=== PATIENT | male | born 1935 | race Caucasian/White ===

== ENCOUNTER 2017-08-30 17:11 | Inpatient (IN) | payer OTHER ==
[~2017-08-30] VITALS: Ht 165.1 cm; Wt 83.0 kg
[~2017-08-30 17:11] MED LIST: NORCO 325 MG-51 TAB PO
--- NOTE | 2017-08-30 17:52 | RADIOLOGY REPORT ---
EXAMINATION: XR CHEST CLINICAL INFORMATION: Weakening chills. COMPARISON: None TECHNIQUE: 2 views of the chest were obtained. FINDINGS: The lungs are well-expanded and clear of acute pneumonic process. There is ill-defined groundglass opacity right upper lobe right posterior fifth interspace. No additional abnormality noted. The heart size and pulmonary vascularity is normal. Moderate spondylosis dorsal spine is noted.. IMPRESSION: Small groundglass density right upper lobe. Recommend CT chest. No acute process seen otherwise.
[2017-08-30 18:20] LABS: ABSOLUTE BASOPHIL COUNT 0 /CUMM (0.0-0.2); ABSOLUTE EOSINOPHIL COUNT 0 /CUMM (0.0-0.7); ABSOLUTE GRANULOCYTE CT 2.8 /CUMM (1.4-6.5); ABSOLUTE LYMPH COUNT 0.4 /CUMM (1.2-3.4); ABSOLUTE MONOCYTE COUNT 0.3 /CUMM (0.10-0.60); BASOPHIL % 0.3 % (0.0-2.0); EOSINOPHIL % 0.5 % (0-5); GRANULOCYTE % 79.6 % (42.2-75.2); HEMATOCRIT 42.2 % (42-52); MEAN CORPUSCULAR HGB 32.1 PG (27.0-31.0); MEAN CORPUSCULAR HGB CONC 33.9 G/DL (33.0-37.0); MEAN CORPUSCULAR VOLUME 94.7 FL (80.0-94.0); MEAN PLATELET VOLUME 7.7 FL (7.4-10.4); PLATELET COUNT 178 /CUMM (130-400); RBC DISTRIBUTION WIDTH 14.6 % (11.5-14.5); RED BLOOD CELL CT 4.46 /CUMM (4.70-6.10); WHITE BLOOD CELL COUNT 3.5 /CUMM (4.8-10.8)
--- NOTE | 2017-08-30 18:38 | CT SCAN REPORT ---
CT HEAD WITHOUT CONTRAST CLINICAL INFORMATION: Weakness and headache. COMPARISON: Head CT January 06, 2010. TECHNIQUE: Contiguous axial imaging was performed from the skull base to vertex without intravenous administration of contrast. FINDINGS: Stable appearing calcification along the falx cerebri and tentorial leaflets. There is global cerebral volume loss and mild chronic microangiopathy. There is no intracranial hemorrhage, hydrocephalus, extra-axial surface collection, midline shift, or other herniation pattern. Sue to white matter differentiation is diffusely maintained without evidence of an evolved acute territorial infarct. The basilar cisterns are preserved. No significant soft tissue abnormality. No acute osseous abnormality. The paranasal sinuses and the mastoid air cells are well-aerated. IMPRESSION: No acute intracranial abnormality. There is global cerebral volume loss and mild chronic microangiopathy.
--- NOTE | 2017-08-30 19:36 | ED DYSPNEA/ASTHMA COMPLAINT ---
History of Present Illness General Chief Complaint: General Adult Stated Complaint: WEAK AND CHILLS Source: patient, family Exam Limitations: no limitations Vital Signs & Intake/Output Vital Signs & Intake/Output Vital Signs Date Time Temp Pulse Resp B/P B/P Pulse O2 O2 Flow FiO2 Mean Ox Delivery Rate 08/30 2054 99.8 99 20 139/65 94 Room Air 08/30 1940 Room Air 08/30 1717 98.2 102 18 135/88 95 Room Air Allergies Coded Allergies: NO KNOWN ALLERGIES (03/11/14) Reconcile Medications Acetaminophen/Hydrocodone Bi ([place] 325 MG-5 MG) 1 TAB TAB 1 TAB PO Q6HR PRN PAIN Allopurinol 300 MG TABLET 1 TAB PO DAILY HEADACHE (Reported) Simvastatin (Simvastatin*) 40 MG TABLET 1 TAB PO QPM HIGH CHOLESTROL ( Reported) Triage Note: PT STATES HE HAS THE CHILLS ALL LAST NIGHT INTO TODAY WITH A ALCARAZ. PT STATES HE SLEPT ALL NIGHT AND THEN AGAIN MOST OF TODAY. PT WITH RASH TO LEFT SIDE OF HIS HEAD AND STATES IT VILLAGOMEZ. Triage Nurses Notes Reviewed? yes Onset: Gradual Duration: constant Severity: severe HPI: Patient is a 82-year-old male with a past medical history of gout and hyperlipidemia who presents emergency room with concerns of a 24-hour history of profound weakness fatigue headache bodyaches chills and left-sided forehead burning rash. Denies any chest pain arm pain jaw pain nausea vomiting blurred vision facial droop extremity weakness. Patient can tolerate by mouth however had decreased by mouth intake (Marquis López) Past History Travel History Traveled to [place] past 21 day No Medical History Any Pertinent Medical History? see below for history Cardiovascular: hyperlipidemia Renal: GOUT Influenza Vaccine: 11/22/09 Surgical History Surgical History: non-contributory Psychosocial History Who do you live with Spouse Services at Home None What is your primary language Hungarian Tobacco Use: Never used ETOH Use: occasional use Illicit Drug Use: denies illicit drug use Family History Hx Contributory? No (Marquis López) Review of Systems Review of Systems Constitutional: Reports: see HPI, chills, malaise, weakness. EENTM: Reports: no symptoms. Respiratory: Reports: see HPI. Cardiovascular: Reports: no symptoms. GI: Reports: no symptoms. Genitourinary: Reports: no symptoms. Musculoskeletal: Reports: see HPI. Skin: Reports: no symptoms. Neurological/Psychological: Reports: see HPI. Hematologic/Endocrine: Reports: no symptoms. Immunologic/Allergic: Reports: no symptoms. All Other Systems: Reviewed and Negative (Marquis López) Physical Exam Physical Exam General Appearance: lethargic Head: tenderness Eyes: Bilateral: normal appearance, PERRL, EOMI. Ears, Nose, Throat: normal pharynx, normal ENT inspection, hearing grossly normal Neck: normal inspection, supple, full range of motion, no midline tenderness Respiratory: normal breath sounds, chest non-tender, no respiratory distress Cardiovascular: regular rate/rhythm Gastrointestinal: normal bowel sounds, soft, non-tender Neurologic/Psych: no motor/sensory deficits, awake, alert, oriented x 3, intervention teacher II- XII nml as tested Comments: Left forehead noted clustered vesicular erythematous rash Core Measures ACS in differential dx? Yes CVA/TIA Diagnosis No Sepsis Present: No Sepsis Focused Exam Completed? No (Marquis López) Progress Differential Diagnosis: asthma, AMI, bronchitis, costochondritis, CHF, COPD, musculoskeletal pain, pericarditis, pulmonary embolism, pneumonia, pneumothorax, rib fracture, unstable angina Plan of Care: Orders Procedure Date/time Status Heart Healthy Diet 08/31 B Active Patient Data 08/30 2112 Active BLOOD CULTURE 08/30 2054 Active ED Holding Orders 08/30 2053 Active Admit to inpatient 08/30 2053 Active Vital Signs 08/30 2053 Active Code Status 08/30 2053 Active Intake & Output 08/31 1939 Active TROPONIN LEVEL 08/30 1716 Complete LACTIC ACID 08/30 1716 Complete COMPREHENSIVE METABOLIC PANEL 08/30 1716 Complete CBC WITHOUT DIFFERENTIAL 08/30 1716 Complete EKG 08/30 1716 Active Laboratory Tests 08/30/17 2017: Lactic Acid Cancelled 08/30/17 1755: Anion Gap 13, Estimated GFR > 60, BUN/Creatinine Ratio 14.5, Glucose 126 H, Lactic Acid 1.5, Calcium 9.0, Total Bilirubin 0.6, AST 69 H, ALT 65, Alkaline Phosphatase 94, Troponin I 0.01, Total Protein 7.0, Albumin 3.9, Globulin 3.1, Albumin/Globulin Ratio 1.3, CBC w Diff NO MAN DIFF REQ, RBC 4.46 L, MCV 94.7 H , MCH 32.1 H, MCHC 33.9, RDW 14.6 H, MPV 7.7, Gran % 79.6 H, Lymphocytes % 10.7 L, Monocytes % 8.9, Eosinophils % 0.5, Basophils % 0.3, Absolute Granulocytes 2.8, Absolute Lymphocytes 0.4 L, Absolute Monocytes 0.3, Absolute Eosinophils 0, Absolute Basophils 0 Microbiology 08/30 2114 BLOOD: Blood Culture - RECD 08/31 2111 BLOOD: Blood Culture - RECD On initial presentation patient is following all commands appropriately clear lungs auscultation no apparent distress patient has suspicion of left forehead herpes zoster. No respiratory distress patient afebrile Initial chest x-ray identifies concerns of developing pneumonia CT scan of head was unremarkable no concerns of CVA. NIH stroke scale 0. Patient has nonspecific weakness complaints CT scan of chest was resulted showing concerns of bronchitis/pneumonia I also discussed the internal findings of the right renal carcinoma suspicion. Patient and family members were given copies THEY state that a few years ago they were notified BY THEIR DOCTOR of enlarged kidney however there were unknown of concerns of carcinoma prior to today Diagnostic Imaging: Viewed by Me: CT Scan. Radiology Impression: acute abnormality Initial ED EKG: normal sinus rhythm (S), SINUS RHYTHM, 98 BPM, LAD, FIRST DEGREE AV BLOCK Comments: PATIENT: ARCENIO CENTENO PRESENT AGE: 82 PATIENT ACCOUNT NO: [id number] : 33 LOCATION: [facility] ORDERING PHYSICIAN: Marquis AGUILAR SERVICE DATE: 08/30/17 EXAM TYPE: CAT - CT HEAD WO IV CONTRAST CT HEAD WITHOUT CONTRAST CLINICAL INFORMATION: Weakness and headache. COMPARISON: Head CT January 06, 2010. TECHNIQUE: Contiguous axial imaging was performed from the skull base to vertex without intravenous administration of contrast. FINDINGS: Stable appearing calcification along the falx cerebri and tentorial leaflets. There is global cerebral volume loss and mild chronic microangiopathy. There is no intracranial hemorrhage, hydrocephalus, extra-axial surface collection, midline shift, or other herniation pattern. Sue to white matter differentiation is diffusely maintained without evidence of an evolved acute territorial infarct. The basilar cisterns are preserved. No significant soft tissue abnormality. No acute osseous abnormality. The paranasal sinuses and the mastoid air cells are well-aerated. IMPRESSION: No acute intracranial abnormality. There is global cerebral volume loss and mild chronic microangiopathy. DICTATED BY: Santiago Mcdermott MD DATE/TIME DICTATED:08/30/171828 SHIRT IRONER:MALI DATE/TIME TRANSCRIBED:08/30/171828 CONFIDENTIAL, DO NOT COPY WITHOUT APPROPRIATE AUTHORIZATION. <Electronically signed in Other Vendor System> SIGNED BY: Santiago Mcdermott MD 08/30/171837 PATIENT: ARCENIO CENTENO PRESENT AGE: 82 PATIENT ACCOUNT NO: [id number] : 33 LOCATION: [facility] ORDERING PHYSICIAN: Marquis AGUILAR SERVICE DATE: 08/30/17 EXAM TYPE: CAT - CT CHEST W IV CONTRAST EXAMINATION: CT CHEST WITH CONTRAST CLINICAL INFORMATION: Weakness. Chest x-ray shows suspecting pneumonia. COMPARISON: CT chest 03/11/2014 TECHNIQUE: Multidetector volumetric CT imaging of the chest was obtained after the administration of 50 mL of Optiray 320 intravenous contrast without immediate adverse reactions. Axial MIP volume rendering provided. Sagittal and coronal reformatted images were obtained. DLP: 267 mGy-cm FINDINGS: CHANNELER INSOLE: Unremarkable. LUNGS: The lungs are well expanded and clear of acute pneumonic process. There is no groundglass attenuation, nodule or mass seen in the right upper lobe to correspond to chest x-ray abnormality. However there is bilateral lower lobe platelike and bandlike atelectasis. There is focal traction bronchiectasis right lower lobe with mild loss of right lower lobe volume. Mild bronchiectasis seen in the left lower lobe and right middle lobe. MEDIASTINUM: The thyroid lobes are symmetrical and normal. The central trachea and the bronchi widely patent. Heart size and the great vessels are normal caliber. No abnormal size lymph nodes or mass seen. No pericardial effusion. PLEURA: Is minimal bilateral posterior pleural thickening but no effusion or calcified pleural plaque seen. AXILLA: Small shotty lymph nodes are seen in the axilla. The chest wall appears unremarkable. UPPER ABDOMEN: Visualized liver, spleen, pancreas and bilateral adrenal glands are unremarkable. There is a solid isodense mass in the right kidney measuring 3.2 x 4.8 cm and approximately 80 Hounsfield units suggestive of right renal cancer unless proven otherwise. It measured 3.0 x 3.7 x 3.0 cm on the previous CT chest exam 03/11/2014. There is cortical thinning upper pole left kidney. A 7 mm hypodensity or fullness seen in the right adrenal gland. OSSEOUS STRUCTURES: There is moderate spondylosis mid and lower dorsal spine. No lytic or sclerotic process seen. IMPRESSION: Bilateral lower lobe platelike and bandlike atelectasis with focal traction bronchiectasis it involves both lower lobes and right middle lobe. These findings are most suggestive of terminal bronchiolar disease and/or resolving infiltrate. There is no right upper lobe nodule or mass seen to correspond with chest x-ray abnormality There is a right upper lobe solid mass suggestive of renal carcinoma unless proven otherwise. It it has slightly increased in size since 2015. 7 mm hypodensity or fullness in the right adrenal gland appears stable DICTATED BY: Alexander Hogan MD DATE/TIME DICTATED:08/30/172025 SHIRT IRONER:MALI DATE/TIME TRANSCRIBED:08/30/172025 CONFIDENTIAL, DO NOT COPY WITHOUT APPROPRIATE AUTHORIZATION. <Electronically signed PATIENT: ARCENIO CENTENO PRESENT AGE: 82 PATIENT ACCOUNT NO: [id number] : 33 LOCATION: [facility] ORDERING PHYSICIAN: Marquis AGUILAR SERVICE DATE: 08/30/17 EXAM TYPE: RAD - XRY-CHEST XRAY, TWO VIEWS EXAMINATION: XR CHEST CLINICAL INFORMATION: Weakening chills. COMPARISON: None TECHNIQUE: 2 views of the chest were obtained. FINDINGS: The lungs are well-expanded and clear of acute pneumonic process. There is ill-defined groundglass opacity right upper lobe right posterior fifth interspace. No additional abnormality noted. The heart size and pulmonary vascularity is normal. Moderate spondylosis dorsal spine is noted.. IMPRESSION: Small groundglass density right upper lobe. Recommend CT chest. No acute process seen otherwise. DICTATED BY: Alexander Hogan MD DATE/TIME DICTATED:08/30/171744 SHIRT IRONER:MALI DATE/TIME TRANSCRIBED:08/30/171744 CONFIDENTIAL, DO NOT COPY WITHOUT APPROPRIATE AUTHORIZATION. <Electronically signed in Other Vendor System> SIGNED BY: Alexander Hogan MD 08/30/171751 (Akin AGUILAR,Marquis) Departure Departure Disposition: STILL A PATIENT Condition: Stable Clinical Impression Primary Impression: Pneumonia Secondary Impressions: Renal carcinoma, Zoster Referrals: Woodrow CORRALES,Gael Pollard (PCP/Family) Departure Forms: Customer Survey General Discharge Information Admission Note Spoke With: Sintia Anderson MD Documentation of Exam: Documentation of any treatments & extenuating circumstances including Concerns Regarding Discharge (functional status, medication knowledge or non-compliance, living conditions, etc.) that warrant an admission rather than observation: [ Patient requires IV antibiotics and antiviral medication, IV fluids, oncology consultation, nephrology consultation blood cultures currently pending] (Marquis López) PA/SALVAGE CLERK Co-Sign Statement Statement: ED Attending supervision documentation- [X] I saw and evaluated the patient. I have also reviewed all the pertinent lab results and diagnostic results. I agree with the findings and the plan of care as documented in the PA's/SALVAGE CLERK's documentation. [X] I have reviewed the ED Record and agree with the PA's/SALVAGE CLERK's documentation. [] Additions or exceptions (if any) to the PAs/SALVAGE CLERK's note and plan are summarized below: [Patient. Admitted for pneumonia, he will need a urology consult given the renal mass. IV antibiotics, pulmonary consult.] (Seema CORRALES,Melvin Senior) Critical Care Note Critical Care Note Critical Care Time: non-applicable (Marquis López) Critical Care Time: non-applicable (Marquis López)
[2017-08-30] MEDS ORDERED: ALLOPURINOL300 M1 PO (19:40)
[2017-08-30] MEDS ORDERED: SIMVASTATIN40 M1 PO (19:41)
--- NOTE | 2017-08-30 20:46 | CT SCAN REPORT ---
EXAMINATION: CT CHEST WITH CONTRAST CLINICAL INFORMATION: Weakness. Chest x-ray shows suspecting pneumonia. COMPARISON: CT chest 03/11/2014 TECHNIQUE: Multidetector volumetric CT imaging of the chest was obtained after the administration of 50 mL of Optiray 320 intravenous contrast without immediate adverse reactions. Axial MIP volume rendering provided. Sagittal and coronal reformatted images were obtained. DLP: 267 mGy-cm FINDINGS: PICKLER HELPER: Unremarkable. LUNGS: The lungs are well expanded and clear of acute pneumonic process. There is no groundglass attenuation, nodule or mass seen in the right upper lobe to correspond to chest x-ray abnormality. However there is bilateral lower lobe platelike and bandlike atelectasis. There is focal traction bronchiectasis right lower lobe with mild loss of right lower lobe volume. Mild bronchiectasis seen in the left lower lobe and right middle lobe. MEDIASTINUM: The thyroid lobes are symmetrical and normal. The central trachea and the bronchi widely patent. Heart size and the great vessels are normal caliber. No abnormal size lymph nodes or mass seen. No pericardial effusion. PLEURA: Is minimal bilateral posterior pleural thickening but no effusion or calcified pleural plaque seen. AXILLA: Small shotty lymph nodes are seen in the axilla. The chest wall appears unremarkable. UPPER ABDOMEN: Visualized liver, spleen, pancreas and bilateral adrenal glands are unremarkable. There is a solid isodense mass in the right kidney measuring 3.2 x 4.8 cm and approximately 80 Hounsfield units suggestive of right renal cancer unless proven otherwise. It measured 3.0 x 3.7 x 3.0 cm on the previous CT chest exam 03/11/2014. There is cortical thinning upper pole left kidney. A 7 mm hypodensity or fullness seen in the right adrenal gland. OSSEOUS STRUCTURES: There is moderate spondylosis mid and lower dorsal spine. No lytic or sclerotic process seen. IMPRESSION: Bilateral lower lobe platelike and bandlike atelectasis with focal traction bronchiectasis it involves both lower lobes and right middle lobe. These findings are most suggestive of terminal bronchiolar disease and/or resolving infiltrate. There is no right upper lobe nodule or mass seen to correspond with chest x-ray abnormality There is a right upper lobe solid mass suggestive of renal carcinoma unless proven otherwise. It it has slightly increased in size since 2014. 7 mm hypodensity or fullness in the right adrenal gland appears stable
--- NOTE | 2017-08-30 22:18 | History & Physical ---
Alex Chamberlain 08/30/17 2218: General Information and HPI MD Statement: I have seen and personally examined ARCENIO CENTENO and documented this H&P. The patient is a 82 year old M who presented with a patient stated chief complaint of [fever chills and weakness]. Source of Information: patient Exam Limitations: no limitations History of Present Illness: Mr. Centeno is a pleasant 82-year-old male with a PMH of Hypertension, hyperlipidemia, benign prostatic hyperplasia, hx of one TIA presents to the ED with significant weakness, fatigue, chills, and painful forehead rash. Patient noticed a rash on his forehead 2 days ago that was extremely painful. He describes it as burning. He also began feeling extremely fatigued, slightly short of breath, and weak and could not get out of bed despite being very active and independent. This worried him because it was very different from his baseline. He was feeling so weak that he did not even take his regular meals or take his medications. He spent almost the entire weekend in bed. He denies fever, nausea, vomiting, cough, chest pain, palpitations, lightheadedness, any recent travel, sick contacts. Allergies/Medications Allergies: Coded Allergies: NO KNOWN ALLERGIES (03/11/14) Past History Travel History Traveled to [place] past 21 day No Medical History Cardiovascular: hyperlipidemia Renal: GOUT Influenza Vaccine: 11/22/09 Surgical History Surgical History: non-contributory Past Family/Social History Psychosocial History Services at Home: None ETOH Use: occasional use Illicit Drug Use: denies illicit drug use Review of Systems Review of Systems Constitutional: Reports: diaphoresis, weakness. Denies: chills, fever. EENTM: Denies: blurred vision, throat pain. Cardiovascular: Denies: chest pain, palpitations. Respiratory: Denies: short of breath. GI: Denies: abdominal pain, bloating, diarrhea, distention, nausea, changes in stool , vomiting. Genitourinary: Denies: dysuria, frequency. Musculoskeletal: Denies: joint pain. Skin: Reports: rash. Neurological/Psychological: Reports: no symptoms. Hematologic/Endocrine: Reports: no symptoms. Immunologic/Allergic: Reports: no symptoms. All Other Systems: Reviewed and Negative Exam & Diagnostic Data Last 24 Hrs of Vital Signs/I&O Vital Signs Date Time Temp Pulse Resp B/P B/P Pulse O2 O2 Flow FiO2 Mean Ox Delivery Rate 08/31 0823 74 148/78 08/31 0823 74 148/78 08/31 0624 100.9 08/31 0601 101.4 08/31 0557 101.4 78 18 151/82 96 Room Air 08/31 0048 98.9 89 20 142/72 95 Room Air 08/30 2055 99.8 99 20 139/65 94 Room Air 08/30 1941 Room Air 08/30 1717 98.2 102 18 135/88 95 Room Air Intake & Output 08/31 1600 08/31 0800 07 0000 Intake Total 1000 Output Total Balance 1000 Intake, IV 1000 Patient 165 lb 165 lb Weight Weight Reported by Patient Measurement Method Physical Exam General Appearance Alert, Oriented X3, Cooperative, No Acute Distress Skin Temp/Moisture Exam: Warm/Dry HEENT Atraumatic, PERRLA, EOMI Neck Supple Cardiovascular Regular Rate (Tachy), Normal S1, Normal S2 Lungs Clear to Auscultation Abdomen Normal Bowel Sounds, Soft Extremities Normal Pulses Assessment/Plan Assessment: 1. Bilateral lower lobe acute exacerbation of bronchiectasis - IV Ceftrixone + Azithromycin - Icentive Spiroemtry - Blood and Sputum Cx - Pulm Consult 2. New right renal cell carcinoma - Urology Consult 3. Herpes Zoster Rash - Valtrex for shingles 4. House Chores - DVT PPX - Full Code As Ranked By This Provider Problem List: 1. Fall 2. Zoster 3. Pneumonia 4. Kidney mass Core Measures/Misc (11/08) Acute Coronary Syndrome ACS Diagnosis: No Congestive Heart Failure Congestive Heart Failure Diagnosis No Cerebrovascular Accident CVA/TIA Diagnosis: No VTE (View Protocol) VTE Risk Factors Age>40 No Mechanical VTE Prophylaxis d/t N/A MechProphylax Ordered No VTE Pharm Prophylaxis d/t NA PharmProphylax ordered Sepsis (View protocol) Sepsis Present: Yes If YES complete Sepsis Event Note If YES complete Sepsis Event Note Inpatient Sepsis Exam Sepsis Cardiac Exam: Tachycardia Sepsis Resp Exam: Ronchi Sepsis Cap Refill Exam: >2 sec Sepsis Peripheral Pulse Exam: Normal Sepsis Peripheral Pulse Location: Dorsalis Pedis Sepsis Skin Color Exam: Normal for Ethnicity Skin Temp/Moisture Exam: Warm/Dry Brittnee CORRALES,Amanda 08/30/17 1242: General Information and HPI Allergies/Medications Home Med list Acetaminophen/Hydrocodone Bi (C[place] 325 MG-5 MG) 1 TAB TAB 1 TAB PO Q6HR PRN PAIN Allopurinol 300 MG TABLET 1 TAB PO DAILY HEADACHE (Reported) Aspirin (Ecotrin*) 81 MG TABLET.DR 1 TAB PO DAILY TIA (Reported) Losartan Potassium 50 MG TABLET 1 TAB PO DAILY HTN (Reported) Propranolol HCl 40 MG TABLET 1 TAB PO DAILY HTN (Reported) Simvastatin (Simvastatin*) 40 MG TABLET 1 TAB PO QPM HIGH CHOLESTROL ( Reported) Core Measures/Misc (11/08) Sepsis (View protocol) If YES complete Sepsis Event Note If YES complete Sepsis Event Note Resident Review Statement Resident Statement: examined this patient, discussed with hr intern, agreed with hr intern, reviewed EMR data (avail), discussed with nursing, reviewed images Other Findings: Mr. Centeno is an 82 y/o gentleman with PMH of HTN, [place](1973), HLD, Gout, BPH and Stroke presents with profound weakness, chills and left-sided forehead burning rash. According to the patient he was in his usual state of health until Wednesday when he noticed a rash on his forehead(left side) and was burning. He also reports feeling extremely cold, states she couldn't get warm and had chills. Since Wednesday also feels very tired, he slept all day on Wednesday and Wednesday and also did not take his medications. He is pretty active at baseline and this was very unusual for him. Denies any fever, cough, shortness of breath, chest pain, lightheadedness/dizziness, recent travel or sick contacts, abdominal pain, nausea/vomiting or diarrhea/constipation. He does endorse decreased appetite and is not eating well for the past 2 days. Vitals on admission were Temp 98.2, HR102 , RR 18, BP 135/18, 95% on room air Physical He had a WBC 3.5, H&H 14.3/42.2, plt count 178, BUN/Creatinine Ratio 14.5, Glucose 126 H, Lactic Acid 1.5,normal LFTs, Troponin 0.01, Blood Cx pending. CT HEAD WO IV CONTRAST; No acute intracranial abnormality. CT CHEST W IV CONTRAST; Bilateral lower lobe platelike and bandlike atelectasis with focal traction bronchiectasis it involves both lower lobes and right middle lobe. These findings are most suggestive of terminal bronchiolar disease and/or resolving infiltrate. There is a right upper lobe solid mass suggestive of renal carcinoma unless proven otherwise. It it has slightly increased in size since 2015. Problem List 1. Acute Exacerbation of Bronchiectasis; ?? Sepsis Patient meets sepsis criteria (WBC count < 4 and HR > 90 with source of infecrtion) but clinically does not look septic and hemodynamically stable. 2. Herpes Zoster 3. Renal Mass on CT 4. Hx of HTN, HLD, Gout - Admit the patient to general medicine floor - Start the patient on IV ceftriaxone and azithromycin - Intensive spirometry - Pulm Consult - F/u Blood and sputum Cx - Valtrex for shingles - Urology Consult for renal Mass - Continue Home medications. DVT prophylaxis; Alps and subcutaneous Lovenox Patient is full code Sintia Anderson MD 08/30/17 2241: Core Measures/Misc (11/08) Sepsis (View protocol) If YES complete Sepsis Event Note If YES complete Sepsis Event Note Attending MD Review Statement Attending Statement Attending MD Statement: examined this patient, discuss w/resident/PA/RN CORRECTIONS, agreed w/resident/PA/RN CORRECTIONS, reviewed EMR data (avail) Attending Assessment/Plan: 82M PMH gout, HLD presenting with 1 day of fever, chills, and weakness. Has been sleeping >12 hours per day the past few days and has felt ill and fatigued. Denies cough, has some mild SOB. Denies sore throat, chest pain, palpitations, abdominal pain, diarrhea, dysuria. Temp 99.8 in the ED, normal BP, WBC 3.5. CT shows bilateral lower lobe traction bronchiectasis without pneumonia, and right sided renal cell carcinoma [id number]. Had known mass on kidney, but has increased in size since prior CT. 1. Bilateral lower lobe acute exacerbation of bronchiectasis 2. New right renal cell carcinoma Plan - Admit to general medicine - Ceftriaxone and Azithro - Sputum culture - Pulmonary and urology consults - Incentive spirometry - Continue home meds - DVT PPx
--- NOTE | 2017-08-30 22:43 | Admission Certification ---
Admission Certification Certification Statement - As attending physician, I certify that at the time of - admission, based on clinical presentation, severity of - symptoms, need for further diagnostic testing and - therapeutic interventions, and risk of adverse outcomes - without in-hospital treatment, in my clinical assessment, - this patient requires an acute hospital stay for a minimum - of two nights or longer. I have also considered psychsocial - factors such as support system, advanced age, financial - issues, cognitive issues, and failed out-patient treatments, - past re-admission history, safety of patient, and lack of - compliance as applicable. Specific rationale supporting this admission is: Profound fatigue with exacerbation of bronchiectasis
[2017-08-31] MEDS ORDERED: PROPRANOLOL HCL40 M1 PO (01:16)
[2017-08-31] MEDS ORDERED: LOSARTAN POTASS50 M1 PO (01:17)
[2017-08-31] MEDS ORDERED: ASPIRIN EC81 M1 PO (01:17)
[2017-08-31 05:53] LABS: ABSOLUTE BASOPHIL COUNT 0 /CUMM (0.0-0.2); ABSOLUTE EOSINOPHIL COUNT 0 /CUMM (0.0-0.7); ABSOLUTE GRANULOCYTE CT 2.3 /CUMM (1.4-6.5); ABSOLUTE LYMPH COUNT 0.3 /CUMM (1.2-3.4); ABSOLUTE MONOCYTE COUNT 0.3 /CUMM (0.10-0.60); BASOPHIL % 0 % (0.0-2.0); EOSINOPHIL % 1.1 % (0-5); GRANULOCYTE % 79.8 % (42.2-75.2); HEMATOCRIT 38.4 % (42-52); MEAN CORPUSCULAR HGB 32.1 PG (27.0-31.0); MEAN CORPUSCULAR HGB CONC 33.8 G/DL (33.0-37.0); MEAN CORPUSCULAR VOLUME 94.8 FL (80.0-94.0); MEAN PLATELET VOLUME 7.7 FL (7.4-10.4); PLATELET COUNT 137 /CUMM (130-400); RBC DISTRIBUTION WIDTH 15.2 % (11.5-14.5); RED BLOOD CELL CT 4.05 /CUMM (4.70-6.10); WHITE BLOOD CELL COUNT 2.9 /CUMM (4.8-10.8)
--- NOTE | 2017-08-31 09:09 | PN- Housestaff ---
See Addendum Subjective Follow-up For: severe fatigue and weakness Complaints: no complaints Subjective: Patient states he continues to experience severe fatigue and weakness. He states he got up to use the bathroom in the hospital room and tried to fix his blankets when he came back. This completely exhausted him. He states this is so abnormal for him because he golfs four days a week and walks at least 4 holes. He has not noticed any tick bites while being outside. He states the rash on his left forehead has a burning sensation intermittently. He states he has a h/o constipation and has BM q 3-4days and takes dulcolax daily. Denies fever, chills, n/v/d, chest pain, SOB, abdominal pain. Review of Systems Constitutional: Reports: see HPI. Objective Last 24 Hrs of Vital Signs/I&O Vital Signs Date Time Temp Pulse Resp B/P B/P Pulse O2 O2 Flow FiO2 Mean Ox Delivery Rate 08/31 1332 97.8 08/31 0823 74 148/78 08/31 0823 74 148/78 08/31 0800 Room Air 08/31 0624 100.9 08/31 0601 101.4 08/31 0557 101.4 78 18 151/82 96 Room Air / 0048 98.9 89 20 142/72 95 Room Air 08/30 2055 99.8 99 20 139/65 94 Room Air 08/30 1941 Room Air 08/30 1717 98.2 102 18 135/88 95 Room Air Intake & Output 08/31 1600 /10 0800 08/31 0000 Intake Total 1000 Output Total Balance 1000 Intake, IV 1000 Patient 165 lb 165 lb Weight Weight Reported by Patient Measurement Method Physical Exam General Appearance: Alert, Oriented X3, Cooperative, No Acute Distress Skin: 3-4 crusted lesions with surrounding erythema Skin Temp/Moisture Exam: Warm/Dry HEENT: Atraumatic, PERRLA Neck: Supple Cardiovascular: Regular Rate, Normal S1, Normal S2, No Murmurs Lungs: Clear to Auscultation Abdomen: Normal Bowel Sounds, Soft, No Tenderness Neurological: Normal Tone, Sensation Intact Extremities: No Edema, Normal Pulses Assessment/Plan Assessment: Mr. Anne is a pleasant 82-year-old male with a PMH of Hypertension, hyperlipidemia, benign prostatic hyperplasia, hx of one TIA presents to the ED with significant weakness, fatigue, chills, and painful forehead rash for 3-4 days. He was admitted to the general medicine service for the following problems: Problem List: 1. Herpes Zoster left forehead 2. Bronchiectasis 3. Severe Fatigue 4. Right renal mass-increased in size compared to imaging from 2014 #Herpes Zoster left forehead -Valacyclovir 1,000mg PO tid-7-10 day course to prevent post herpetic neuralgia #Bronchiectasis -Ceftriaxone/Azithromycin -Pulmonology consult: awaiting recs -follow up sputum cultures #Right renal cell mass (increased since 2014) -Urology consult: awaiting recs #Severe fatigue -Blood cultures pending #chronic medical problems -continue home medication doses DVT prophylaxis: ALPS/lovenox/ambulation Problem List: 1. Kidney mass 2. Zoster 3. Bronchiectasis Pain Ratin Pain Location: none Pain Goal: Remain pain free Pain Plan: see a/p Tomorrow's Labs & Rationales: none
[2017-08-31 16:00] VITALS: BP 138/72
[2017-08-31 22:46] VITALS: BP 112/60
[2017-09-01 07:15] VITALS: BP 124/62
--- NOTE | 2017-09-01 07:39 | PN- Housestaff ---
See Addendum Subjective Follow-up For: bronchiectasis herpes zoster-left forehead Complaints: no complaints Subjective: Patient states he didn't rest very well last night because it's not his own bed. He reports feeling better as he is able to take a deep breath without coughing. He is also improving with his fatigue and was able to go to the bathroom without severe fatigue. We spoke again about the CT findings regarding the renal mass. He feels he will not pursue diagnostics and states he is '82 years old and has had a good life'. He denies any n/v/d, chest pain, SOB, abdominal pain, back pain, fever, chills. Of Note: When rounding this morning the patient states he just finished showering and did experience extreme fatigue when walking back to his bed and could only go a few feet before having to rest in a chair. He also reports associated cough with a deep breath. Review of Systems Constitutional: Reports: see HPI. Objective Last 24 Hrs of Vital Signs/I&O Vital Signs Date Time Temp Pulse Resp B/P B/P Pulse O2 O2 Flow FiO2 Mean Ox Delivery Rate 09/01 0816 73 120/76 09/01 0816 73 120/76 09/01 0715 98.1 64 16 124/62 93 09/01 0000 Room Air 08/31 2246 97.9 77 16 112/60 92 08/31 1610 95 Room Air 08/31 1600 98.1 73 18 138/72 95 Room Air 08/31 1513 98.5 72 18 115/62 94 Room Air 08/31 1332 97.8 Intake & Output 09/01 1600 09/01 0800 09/01 0000 Intake Total Output Total Balance Patient 183 lb 164 lb Weight Weight Standing Scale Measurement Method Physical Exam General Appearance: Alert, Oriented X3, Cooperative, No Acute Distress Skin: lesions on left forehead less erythematous today Skin Temp/Moisture Exam: Warm/Dry HEENT: Atraumatic, PERRLA Neck: Supple Cardiovascular: Regular Rate, Normal S1, Normal S2 Lungs: Clear to Auscultation Abdomen: Normal Bowel Sounds, Soft, No Tenderness Neurological: Normal Tone, Sensation Intact Extremities: No Edema, Normal Pulses Assessment/Plan Assessment: Mr. Anne is a pleasant 82-year-old male with a PMH of Hypertension, hyperlipidemia, benign prostatic hyperplasia, hx of one TIA presents to the ED with significant weakness, fatigue, chills, and painful forehead rash for 3-4 days. He was admitted to the general medicine service for the following problems: Problem List: 1. Herpes Zoster left forehead 2. Bronchiectasis 3. Severe Fatigue 4. Right renal mass-increased in size compared to imaging from 2015 #Herpes Zoster left forehead -Valacyclovir 1,000mg PO tid-7-10 day course to prevent post herpetic neuralgia #Bronchiectasis -Ceftriaxone/Azithromycin -sputum cultures: pending #Leukopenia-could be associated with bronchiectasis -WBC 2.9 (awaiting labs today) -will continue to monitor #Right renal cell mass (increased since 2014) -Urology consult: awaiting recs. Can possibly be done outpatient if urology unable to see inpatient as this finding is unrelated to current hospitalization #Severe fatigue -Blood cultures: pending #chronic medical problems -continue home medication doses DVT prophylaxis: ALPS/lovenox/ambulation Problem List: 1. Kidney mass 2. Bronchiectasis 3. Fatigue Pain Ratin Pain Location: none Pain Goal: Remain pain free Pain Plan: see a/p Tomorrow's Labs & Rationales: none
[2017-09-01 08:29] LABS: ABSOLUTE BASOPHIL COUNT 0 /CUMM (0.0-0.2); ABSOLUTE EOSINOPHIL COUNT 0.1 /CUMM (0.0-0.7); ABSOLUTE GRANULOCYTE CT 1.5 /CUMM (1.4-6.5); ABSOLUTE LYMPH COUNT 0.7 /CUMM (1.2-3.4); ABSOLUTE MONOCYTE COUNT 0.2 /CUMM (0.10-0.60); BASOPHIL % 0.5 % (0.0-2.0); EOSINOPHIL % 3.5 % (0-5); GRANULOCYTE % 60.7 % (42.2-75.2); HEMATOCRIT 36.3 % (42-52); MEAN CORPUSCULAR HGB 32.4 PG (27.0-31.0); MEAN CORPUSCULAR HGB CONC 34.3 G/DL (33.0-37.0); MEAN CORPUSCULAR VOLUME 94.3 FL (80.0-94.0); MEAN PLATELET VOLUME 8.8 FL (7.4-10.4); RED BLOOD CELL CT 3.86 /CUMM (4.70-6.10); WHITE BLOOD CELL COUNT 2.5 /CUMM (4.8-10.8)
[2017-09-01 09:54] LABS: PLATELET COUNT 117 /CUMM (130-400)
--- NOTE | 2017-09-01 13:44 | Discharge Summary ---
Visit Information Visit Dates Admission Date: 08/30/17 Discharge Date: 09/02/17 Hospital Course Course Attending Physician: Scott Beal MD Primary Care Physician: Gael Troy MD Hospital Course: Mr. Anne is a pleasant 82-year-old male with a PMH of Hypertension, hyperlipidemia, benign prostatic hyperplasia, hx of one TIA presents to the ED with significant weakness, fatigue, chills, and painful forehead rash for 3-4 days. He was admitted to the general medicine service for the following problems: Problem List: 1. Herpes Zoster left forehead 2. Bronchiectasis 3. Severe Fatigue 4. Right renal mass-increased in size compared to imaging from 2015 Admission Data:T98.2 P102 RR18 BP135/88 Sat 95%RA CT head: No acute intracranial abnormality. There is global cerebral volume loss and mild chronic microangiopathy CXR: Small groundglass density right upper lobe. Recommend CT chest. No acute process seen otherwise. CT chest: Bilateral lower lobe platelike and bandlike atelectasis with focal traction bronchiectasis it involves both lower lobes and right middle lobe. These findings are most suggestive of terminal bronchiolar disease and/or resolving infiltrate. There is no right upper lobe nodule or mass seen to correspond with chest x-ray abnormality. There is a right upper lobe solid mass suggestive of renal carcinoma unless proven otherwise. It it has slightly increased in size since 2015. 7 mm hypodensity or fullness in the right adrenal gland appears stable #Herpes Zoster left forehead was treated with Valacyclovir 1,000mg PO tid. Was given a Rx for continued treatment to total a 10 day treament course. #Bronchiectasis was treated with Ceftriaxone/Azithromycin. Given 2 more day Rx ( Cefdinir and Azithromycin) to complete a 5 day treatment course. #Leukopenia-could be associated with bronchiectasis or malignancy. WBC 2.9 #Right renal cell mass (increased since 2015). Urology consulted. Will need to follow up outpatient to discuss interventions. Urology is recommending patient goes to [place] for robotic surgery given age. CT abd/pelv 09/01/[address] Benson: Redemonstration of the exophytic right upper pole renal mass. This demonstrates postcontrast enhancement, measuring 3.4 x 3 x 3.4 cm. This compares to 3.2 x 2.6 x 2.9 cm on the prior. In addition, there is an exophytic anterior left lower pole lesion measuring 0.8 cm. This likely represents a cyst. Solid right renal mass which is likely senior human resources representative of a renal cell carcinoma. This demonstrates slight interval growth when compared to the previous CT performed 03/11/2014. #Severe fatigue- evaluated with blood cultures to rule out bacteremia. This could be from underlying malignancy. Blood cultures were negative. Patient was deemed stable to discharge home self care on 09/02/17 with continue antibiotics and antivirals. He will follow up as an outpatient with his PCP and [facility] for further discussion of interventions for right renal mass. He was tolerating a diet well and vital signs were stable; afebrile. Allergies: Coded Allergies: NO KNOWN ALLERGIES (03/11/14) Disposition Summary Disposition Principal Diagnosis: bronchiectasis Additional Diagnosis: shingles (herpes zoster) right renal mass-present since [address] imaging Discharge Disposition: home or self care Discharge Instructions General Discharge Information Code Status: Full Code Patient's Diet: regular Patient's Activity: as tolerated Follow-Up Instructions/Appts: Follow up with your PCP Please consider going for consultation with Surgery at [facility] to discuss treatment for right renal mass Continue and complete all prescriptions as directed Medications at Discharge Discharge Medications: Continue taking these medications: Acetaminophen/Hydrocodone Bi (Ralph 325 MG-5 MG) 1 TAB TAB 1 Tablet ORAL Q6HR as needed for PAIN Qty = 15 Allopurinol (Allopurinol) 300 MG TABLET 1 Tablet ORAL DAILY Qty = 90 Comments: Last Taken:09/02/17 Time:0848 AM Simvastatin (Simvastatin*) 40 MG TABLET 1 Tablet ORAL Every night Qty = 90 Comments: ATORVASTATIN GIVEN IN HOSPITAL Last Taken:09/01/17 Time:05:36PM Propranolol HCl (Propranolol HCl) 40 MG TABLET 1 Tablet ORAL DAILY Qty = 90 Comments: Last Taken:09/02/17 Time:0844AM Losartan Potassium (Losartan Potassium) 50 MG TABLET 1 Tablet ORAL DAILY Qty = 90 Comments: Last Taken:09/02/17 Time:0840AM Aspirin (Ecotrin*) 81 MG TABLET.DR 1 Tablet ORAL DAILY Comments: Last Taken:09/02/17 Time:0847AM Start taking the following new medications: Cefdinir (Cefdinir) 300 MG CAPSULE 1 Capsule ORAL TWICE DAILY Qty = 4 No Refills Instructions: . Azithromycin (Azithromycin) 250 MG TABLET 250 Milligram ORAL AT BEDTIME Qty = 2 No Refills Instructions: . Comments: Last Taken:09/01/17 Time:08:31PM Valacyclovir Hydrochloride (Valtrex) 500 MG TABLET 1,000 Milligram ORAL THREE TIMES DAILY Qty = 42 No Refills Instructions: . Comments: Last Taken:09/02/17 Time:08:48AM DOSE 7 OF 20 Copies To: Marcelino CORRALES,Melina; Woodrow CORRALES,Gael Pollard Attending MD Review Statement Documenting Attending: Scott Beal MD Other Findings: The patient was seen and agree with summary of care and plan of care upon discharge. Will follow-up with PCP for pneumonia and also suggested he go to [place] for evaluation for renal mass and possible robotic surgery. He was given a disk with copies of his CT images.
[2017-09-01 14:14] VITALS: BP 120/62
--- NOTE | 2017-09-01 17:19 | Cons- Urology ---
General Information and HPI Consulting Request Date of Consult: 09/01/17 Requested By: Scott Beal MD Reason for Consult: right renal mass Source of Information: patient Exam Limitations: no limitations History of Present Illness: An 82-year-old male with a PMH of Hypertension, hyperlipidemia, benign prostatic hyperplasia, hx of one TIA presents to the ED with significant weakness, fatigue , chills, and painful forehead rash. He also began feeling extremely fatigued, slightly short of breath, and weak and could not get out of bed despite being very active and independent. He denied any fever, nausea, vomiting, cough, chest pain, palpitations, lightheadedness, any recent travel, sick contacts. He was found to have a pneumonia. Urology was consulted for a right renal mass seen on CT scan of the chest. He stated that he knew about the kidney mass three years ago but did not have it addressed bc he thought it meant he would need to have a catheter placed. He denies any weight loss or right flank pain or gross hematuria. He has no smoking hx or renal cancer hx in his family. Allergies/Medications Allergies: Coded Allergies: NO KNOWN ALLERGIES (03/11/14) Home Med List: Acetaminophen/Hydrocodone Bi (Capron 325 MG-5 MG) 1 TAB TAB 1 TAB PO Q6HR PRN PAIN Allopurinol 300 MG TABLET 1 TAB PO DAILY HEADACHE (Reported) Aspirin (Ecotrin*) 81 MG TABLET.DR 1 TAB PO DAILY TIA (Reported) Losartan Potassium 50 MG TABLET 1 TAB PO DAILY HTN (Reported) Propranolol HCl 40 MG TABLET 1 TAB PO DAILY HTN (Reported) Simvastatin (Simvastatin*) 40 MG TABLET 1 TAB PO QPM HIGH CHOLESTROL ( Reported) Current Medications: Current Medications Sig/Damien Start time Last Medication Dose Route Stop Time Status Admin Acetaminophen 650 MG Q6P PRN 08/31 0115 AC 08/31 PO 0601 Albuterol Sulfate 3 ML BID 09/01 1116 AC 09/01 INH 1117 Allopurinol 300 MG DAILY 08/31 013 AC 09/01 PO 0817 Aspirin Buffered 81 MG DAILY 08/31 0130 AC 09/01 PO 0817 Atorvastatin Calcium 20 MG 1700 08/31 0130 AC 08/31 PO 1657 Azithromycin 250 MG AT BEDTIME 08/31 2100 AC 08/31 PO 220 Ceftriaxone Sodium 1,000 MG Q24H 08/31 2199 AC 07/10 IV 2208 Docusate Sodium 100 MG DAILY NEEDED PRN 08/31 1800 AC 09/01 PO 0817 Enoxaparin Sodium 40 MG DAILY 08/31 0900 AC 09/01 SC 0816 Guaifenesin 600 MG Q12 09/01 1111 AC 09/01 PO 1134 Losartan Potassium 50 MG DAILY 08/31 0130 AC 09/01 PO 0816 Omeprazole 40 MG DAILY AC 08/31 0730 AC 09/01 PO 0601 Patient Medication 1 ED ONE ONE 09/01 1230 DC 09/01 Teaching ED 09/01 1231 1225 Polyethylene Glycol 17 GM DAILY 08/31 1751 AC 09/01 PO 0816 Propranolol HCl 40 MG DAILY 08/31 0130 AC 09/01 PO 0816 Senna 187 MG AT BEDTIME 08/31 2100 AC 08/31 PO 2207 Valacyclovir HCl 1,000 MG TID 08/31 09 AC 09/01 PO 09/06 1401 1328 Past History Medical History Neurological: NONE EENT: NONE Cardiovascular: hyperlipidemia Respiratory: NONE Gastrointestinal: NONE Hepatic: NONE Renal: GOUT Musculoskeletal: NONE Psychiatric: NONE Endocrine: NONE Blood Disorders: NONE Cancer(s): renal cancer PROTECTIVE SERVICES OFFICER/Reproductive: NONE Surgical History Pertinent Surgical History: non-contributory Psychosocial History Where Do You Live? Home Who Do You Live With? spouse Services at Home: None Primary Language: Romansh Smoking Status: Never Smoked ETOH Use: occasional use Illicit Drug Use: denies illicit drug use Functional Ability ADLs Independent: dressing, eating, toileting, bathing. Ambulation: independent IADLs Independent: shopping, housework, finances, food prep, telephone, transportation , medication admin. Employment History Employment: Retired Retired? yes Review of Systems Review of Systems Constitutional: Reports: weakness. EENTM: Reports: no symptoms. Cardiovascular: Reports: no symptoms. Respiratory: Reports: no symptoms. GI: Reports: no symptoms. Genitourinary: Reports: no symptoms. Musculoskeletal: Reports: no symptoms. Skin: Reports: no symptoms. Neurological/Psychological: Reports: no symptoms. Hematologic/Endocrine: Reports: no symptoms. Immunologic/Allergic: Reports: no symptoms. Exam & Diagnostic Data Vital Signs and I&O Vital Signs Date Time Temp Pulse Resp B/P B/P Pulse O2 O2 Flow FiO2 Mean Ox Delivery Rate 09/01 1600 Room Air 09/01 1414 97.4 64 18 120/62 99 Room Air 09/01 1119 Room Air Room Air 09/01 0816 73 120/76 09/01 0816 73 120/76 11 0800 Room Air 09/01 0715 98.1 64 16 124/62 93 /11 0000 Room Air 08/31 2246 97.9 77 16 112/60 92 Intake & Output 09/01 1600 09/01 0800 09/01 0000 08/31 1600 08/31 0800 08/31 0000 Intake Total 500 1000 Output Total Balance 500 1000 Intake, IV 0 1000 Intake, Oral 500 Number 1 Bowel Movements Patient 83.036 kg 74.389 kg 74.8 kg 74.843 kg Weight Weight Standing Scale Reported by Patient Measurement Method Physical Exam General Appearance: well developed/nourished, no apparent distress, alert, awake , comfortable Head: atraumatic, normal appearance Eyes: Bilateral: normal appearance. Ears, Nose, Throat: normal ENT inspection Neck: normal inspection Respiratory: no respiratory distress Gastrointestinal: soft, no organomegaly Rectal: deferred Back: normal inspection Extremities: no edema Neurologic/Psych: awake, alert, oriented x 3 Cranial Nerves: normal hearing, normal speech Skin: intact, normal color, warm/dry Last 24 Hours of Labs: Laboratory Tests 09/01 0645 Hematology CBC w Diff MAN DIFF ORDERED WBC (4.8 - 10.8 /CUMM) 2.5 L RBC (4.70 - 6.10 /CUMM) 3.86 L Hgb (14.0 - 18.0 G/DL) 12.5 L Hct (42 - 52 %) 36.3 L MCV (80.0 - 94.0 FL) 94.3 H MCH (27.0 - 31.0 PG) 32.4 H MCHC (33.0 - 37.0 G/DL) 34.3 RDW (11.5 - 14.5 %) 15.0 H Plt Count (130 - 400 /CUMM) 117 L MPV (7.4 - 10.4 FL) 8.8 Gran % (42.2 - 75.2 %) 60.7 Lymphocytes % (20.5 - 51.1 %) 27.2 Monocytes % (1.7 - 9.3 %) 8.1 Eosinophils % (0 - 5 %) 3.5 Basophils % (0.0 - 2.0 %) 0.5 Absolute Granulocytes (1.4 - 6.5 /CUMM) 1.5 Segmented Neutrophils (42.2 - 75.2 %) 37 L Band Neutrophils (0.0 - 5.0 %) 18 H Absolute Lymphocytes (1.2 - 3.4 /CUMM) 0.7 L Lymphocytes (20.5 - 51.1 %) 29 Monocytes (1.7 - 9.3 %) 11 H Absolute Monocytes (0.10 - 0.60 /CUMM) 0.2 Eosinophils (0 - 5.0 %) 4 Absolute Eosinophils (0.0 - 0.7 /CUMM) 0.1 Basophils (0.0 - 2.0 %) 1 Absolute Basophils (0.0 - 0.2 /CUMM) 0 Platelet Estimate (ADEQUATE) DECREASED Anisocytosis 1+ Imaging Results: UPPER ABDOMEN: Visualized liver, spleen, pancreas and bilateral adrenal glands are unremarkable. There is a solid isodense mass in the right kidney measuring 3.2 x 4.8 cm and approximately 80 Hounsfield units suggestive of right renal cancer unless proven otherwise. It measured 3.0 x 3.7 x 3.0 cm on the previous CT chest exam 03/11/2014. There is cortical thinning upper pole left kidney. A 7 mm hypodensity or fullness seen in the right adrenal gland. Assessment/Plan Assessment/Plan 82 yo male with pneumonia with right renal mass noted which the patient was aware of since 2014. He has had no systemic or local symptoms associated with it. It is nearly 5cm in size now. Recommend CT of abd/pelvis with and without IV contrast. Referral to [place] urologic surgeon for possible robotic nephrectomy, possible partial Nx. Discussed with the patient, and children. Consult Acknowledgment - Thank you for your consult request.
[2017-09-01 21:35] VITALS: BP 110/78
--- NOTE | 2017-09-01 23:31 | CT SCAN REPORT ---
EXAMINATION: CT ABDOMEN WITHOUT AND WITH CONTRAST CLINICAL INFORMATION: Evaluation of right renal mass. COMPARISON: Chest CT performed 08/30/2017. CT of the chest, abdomen, and pelvis from 03/11/2014. TECHNIQUE: Multidetector volumetric imaging was performed through the abdomen prior to IV contrast. The abdomen and pelvis were then reexamined after the administration of 95 mL Optiray 320 intravenous contrast. Sagittal and coronal reformatted images were obtained on the technologist's workstation. DLP: 288 mGy-cm FINDINGS: LUNG BASES: Bibasilar subsegmental atelectasis. The visualized cardiac structures are unremarkable. LIVER, GALLBLADDER, AND BILIARY TREE: The liver is normal in size, shape, and attenuation. No focal hepatic lesion or biliary ductal dilatation is present. The gallbladder is unremarkable with no evidence of radiopaque gallstones, gallbladder wall thickening, or obvious pericholecystic inflammatory changes. PANCREAS: Unremarkable. SPLEEN: Unremarkable. ADRENAL GLANDS: Left adrenal gland is unremarkable. Subtle subcentimeter hypodense nodule in the right adrenal gland is unchanged. KIDNEYS AND URETERS: The kidneys are normal in size, shape, and attenuation. There is no hydronephrosis, hydroureter, or calculus seen. There is cortical thinning along the posterior margin of the left kidney. Redemonstration of the exophytic right upper pole renal mass. This demonstrates postcontrast enhancement, measuring 3.4 x 3 x 3.4 cm. This compares to 3.2 x 2.6 x 2.9 cm on the prior. In addition, there is an exophytic anterior left lower pole lesion measuring 0.8 cm. This likely represents a cyst. GASTROINTESTINAL TRACT: The stomach is unremarkable. The small bowel is normal in caliber. There is no obstruction. The visualized colon demonstrates no wall thickening or inflammation. There is no free air or free fluid. ABDOMINAL WALL: No significant hernia is appreciated. LYMPH NODES: Normal. VASCULAR: Slight ectasia of the infrarenal abdominal aorta, measuring up to 2.8 cm. This is similar to prior. Mild arthroscopic calcifications. OSSEOUS STRUCTURES: No acute or suspicious osseous abnormality. Mild degenerative changes throughout the spine. Multilevel Schmorl's nodes. IMPRESSION: Solid right renal mass which is likely parts sales representative of a renal cell carcinoma. This demonstrates slight interval growth when compared to the previous CT performed 03/11/2014.
[2017-09-02 06:15] VITALS: BP 122/70
[2017-09-02] MEDS ORDERED: AZITHROMYCIN250 M1 PO ×2 (08:15→10:53)
[2017-09-02] MEDS ORDERED: CEFDINIR300 M1 PO ×2 (08:15→10:53)
--- NOTE | 2017-09-02 08:22 | Patient Discharge Instructions ---
Discharge Instructions General Discharge Information You were seen/treated for: bronchiectasis herpes zoster (shingles) Watch for these problems: fever, chills, nausea, vomiting, severe pain Special Instructions: Please follow up with Dr. Benson as an outpatient to discuss further workup for right renal mass. Diet Continue normal diet: Yes Activity Full Activity/No Limits: Yes Acute Coronary Syndrome Inclusion Criteria At DC or during hospital stay patient has or had the following: ACS DIAGNOSIS No Discharge Core Measures Meds if any: Prescribed or Continued at Discharge Meds if any: NOT Prescribed or Continued at Discharge Congestive Heart Failure Inclusion Criteria At DC or during hospital stay patient has or had the following: CHF DIAGNOSIS No Discharge Core Measures Meds if any: Prescribed or Continued at Discharge Meds if any: NOT Prescribed or Continued at Discharge Cerebrovascular accident Inclusion Criteria At DC or during hospital stay patient has or had the following: CVA/TIA Diagnosis No Discharge Core Measures Meds if any: Prescribed or Continued at Discharge Meds if any: NOT Prescribed or Continued at Discharge Venous thromboembolism Inclusion Criteria VTE Diagnosis No VTE Type NONE VTE Confirmed by (Test) NONE Discharge Core Measures - Per Current guidelines, there needs to be overlap - treatment for the first 5 days of Warfarin therapy. - If discharged on Warfarin prior to 5 days of - overlap therapy, the patient will need to be - assessed for post discharge needs including - *Post discharge parental anticoagulation - *Warfarin and/or parental anticoagulation education - *Follow up date to check INR post discharge At least 5 days overlap therapy as Inpatient No Meds if any: Prescribed or Continued at Discharge Note: Overlap Therapy is Warfarin and Anticoagulant Meds if any: NOT Prescribed or Continued at Discharge
[2017-09-02] MEDS ORDERED: VALTREX500 M1 PO ×2 (08:23→10:53)
--- NOTE | 2017-09-02 08:29 | PN- Housestaff ---
See Addendum Subjective Follow-up For: bronchiectasis shingles to left forehead right renal mass on CT Complaints: no complaints Subjective: Patient continues to improve and feels back to baseline. He is ambulating the length of the general medicine service floor and is able to do so without fatigue or cough. He met Dr. Benson last night and discussed further evaluation for nephrectomy vs partial nephrectomy for right renal mass which would be done at [facility]. He feels ready to go home today. Denies fever, chills, n/v/d , chest pain, SOB. Review of Systems Constitutional: Reports: see HPI. Objective Last 24 Hrs of Vital Signs/I&O Vital Signs Date Time Temp Pulse Resp B/P B/P Pulse O2 O2 Flow FiO2 Mean Ox Delivery Rate 09/02 0844 62 124/60 09/02 0840 62 124/60 09/02 0615 97.7 73 20 122/70 95 Room Air 09/02 0000 Room Air 09/01 2135 97.6 75 18 110/78 95 / 1737 96 Room Air 09/01 1600 Room Air 09/01 1414 97.4 64 18 120/62 99 Room Air 09/01 1119 Room Air Room Air Intake & Output / 1600 /12 0800 /12 0000 Intake Total 120 850 Output Total Balance 120 850 Intake, Oral 120 850 Physical Exam General Appearance: Alert, Oriented X3, Cooperative, No Acute Distress Skin: No Rashes Skin Temp/Moisture Exam: Warm/Dry HEENT: Atraumatic, PERRLA Neck: Supple Cardiovascular: Regular Rate, Normal S1, Normal S2 Lungs: Clear to Auscultation Abdomen: Normal Bowel Sounds, Soft, No Tenderness Neurological: Normal Tone, Sensation Intact Extremities: No Edema, Normal Pulses Assessment/Plan Assessment: Mr. Anne is a pleasant 82-year-old male with a PMH of Hypertension, hyperlipidemia, benign prostatic hyperplasia, hx of one TIA presents to the ED with significant weakness, fatigue, chills, and painful forehead rash for 3-4 days. He was admitted to the general medicine service for the following problems: Problem List: 1. Herpes Zoster left forehead 2. Bronchiectasis 3. Severe Fatigue 4. Right renal mass-increased in size compared to imaging from 2015 #Herpes Zoster left forehead -Valacyclovir 1,000mg PO tid-7-10 day course -will give Rx for continued treatment at home #Bronchiectasis -Ceftriaxone/Azithromycin; will give Rx for two more days to complete a 5 day treatment course #Leukopenia-could be associated with bronchiectasis -WBC 2.9 on admission #Right renal cell mass (increased since 2014) -Urology consult: CT abd/pelv done. Recommend [place] Have follow up with surgery -Will need copies of imaging to take to [place] #Severe fatigue -Blood cultures-negative #chronic medical problems -continue home medication doses DVT prophylaxis: ALPS/lovenox/ambulation Dispo: will dc home today self care Problem List: 1. Bronchiectasis 2. Renal mass 3. Fatigue Pain Ratin Pain Location: none Pain Goal: Remain pain free Pain Plan: see a/p Tomorrow's Labs & Rationales: none
[2017-09-02 08:44] VITALS: BP 124/60
== END 2017-09-02 12:36 | DRG 191 ==
LOC: ERH 17:11 → ERHI 20:54 → ENRESERV 08-31 12:11 → ENTRNSPT 08-31 15:37 → 2NB 08-31 15:56 → CMPTRNSPT 08-31 16:01 → ENPENDDIS 09-02 12:25 → ENTRNSPT 09-02 12:27 → 2NB 09-02 12:36 → EDTRNSPTSTS 09-02 12:47 → EDTRNSPT 09-02 12:47 → CMPTRNSPT 09-02 13:02
PROVIDERS: Internal Medicine; Physician Assistant
DX: J47.9 Bronchiectasis, uncomplicated (principal); B02.8 Zoster with other complications; I10 Essential (primary) hypertension; E78.5 Hyperlipidemia, unspecified; N40.0 Benign prostatic hyperplasia without lower urinary tract symptoms; M10.9 Gout, unspecified; N28.89 Other specified disorders of kidney and ureter; R53.0 Neoplastic (malignant) related fatigue
CPT/HCPCS: 2NBP; ERO; 36592; 71046; 74178; 82436; 87040; 87070; 93005; 93010; 96360; J0456; J0696; J1650; J3490; J7040